=== PATIENT | female | born 1980 | race Two or more races ===

== ENCOUNTER 2024-11-12 20:56 | Emergency (ER) | payer OTHER ==
[~2024-11-12] VITALS: Ht 160 cm; Wt 67.1 kg
[2024-11-12] MEDS ORDERED: KETOROLAC TROMETHAMINE 60 MG VIAL IM ONE (21:53)
[2024-11-12] MEDS ORDERED: CEFTRIAXONE SODIUM 2,000 MG VIAL ONE (21:53)
[2024-11-12] MEDS ORDERED: POVIDONE-IODINE 118 ML BOTT TOP ONE (21:54)
[2024-11-12 22:17] LABS: HEMATOCRIT 35.2 % (36.0-45.00); HEMOGLOBIN 11.8 g/dL (12.0-15.00); MEAN CELL VOLUME 85.4 fL (80.00-100.00); MEAN CORPUSCULAR HEMOGLOBIN 28.6 pg (27.00-32.0); MEAN CORPUSCULAR HGB CONC 33.5 g/dl (32.0-36.0); PLATELET COUNT 241 K/uL (150-450); RED BLOOD COUNT 4.12 M/uL (4.00-6.00); RED CELL DISTRIBUTION WIDTH 13.8 % (11.5-14.5)
[2024-11-12 22:27] LABS: CALCIUM 9.3 mg/dL (8.5-10.1); CREATININE SERUM 0.83 mg/dL (0.55-1.02); GFR 74.01; POTASSIUM 3.56 mEq/L (3.5-5.1)
== END 2024-11-12 23:46 | disposition home or self-care (01) ==
LOC: ER 20:58
PROVIDERS: General Practice
DX: L03.114 Cellulitis of left upper limb (principal)